=== PATIENT | female | born 1965 | race African-American/Black ===

== ENCOUNTER 2016-08-22 11:46 | Day surgery (SDC) | payer OTHER ==
[2016-08-22] VITALS (9 sets, daily range): BP systolic 86–116; BP diastolic 41–65; PULSE 79–114; RESP 12–75; Ht 142.2 cm; Wt 64.0 kg
[~2016-08-22] VITALS: Ht 142.2 cm; Wt 64.0 kg
[~2016-08-22 11:46] MED LIST: DEXAMETHASONE 4 MG/ML 1 ML INJ ONE; ONDANSETRON 4 MG INJ ONE
[2016-08-22] MEDS ORDERED: SOD CHLORIDE 0.9% 1,000 ML IV ONE (12:30)
[2016-08-22 13:49] LABS: ADD SCAN DIFF NO
[2016-08-22 13:52] LABS: BASOPHILS % 0.3 % (0.0-2.0); EOSINOPHILS % 0.7 % (0.0-7.0); HEMOGLOBIN 12.7 g/dl (12.0-16.0); LYMPHOCYTES # 2.1 10^3/ul (0.8-2.9); LYMPHOCYTES % 36.7 % (15.0-51.0); MEAN CORPUSCULAR HEMOGLOBIN 29.3 pg (29.0-33.0); MEAN CORPUSCULAR HGB CONC 33.4 g/dl (32.0-37.0); MEAN CORPUSCULAR VOLUME 87.8 fl (82.0-101.0); MEAN PLATELET VOLUME 12.9 fl (7.4-10.4); MONOCYTE # 0.6 10^3/ul (0.3-0.9); MONOCYTES % 9.5 % (0.0-11.0); NEUTROPHIL # 3.1 10^3/ul (1.6-7.5); NEUTROPHILS % 52.6 % (39.0-77.0); PLATELET COUNT 213 10^3/UL (140-415); RED BLOOD COUNT 4.33 10^6/ul (4.20-5.40); RED CELL DISTRIBUTION WIDTH 13.2 % (11.5-14.5); WHITE BLOOD COUNT 5.8 10^3/ul (4.8-10.8)
[2016-08-22 14:07] LABS: INR 0.94; PROTIME 12.6 Sec (12.2-14.2)
[2016-08-22 14:08] LABS: PARTIAL THROMBOPLASTIN TIME 30.2 Sec (25.0-35.0)
[2016-08-22 14:10] LABS: ALBUMIN 5.2 g/dl (3.3-4.9); ALBUMIN/GLOBULIN RATIO 1.44; BILIRUBIN,INDIRECT 0.6 mg/dl (0-1.1); BILIRUBIN,TOTAL 0.6 mg/dl (0.2-1.3); TOTAL PROTEIN 8.8 g/dl (6.1-8.1)
[2016-08-22 14:14] LABS: CALCIUM 9.7 mg/dl (8.4-10.2); CREATININE 0.85 mg/dl (0.44-1.00); POTASSIUM 4.1 mmol/L (3.5-5.1)
[2016-08-22] MEDS ORDERED: PROPOFOL 60 ML ONE (15:01)
[2016-08-22] MEDS ORDERED: LIDOCAINE 2% (SDV) 5 ML INJ ONE (15:02)
[2016-08-22] MEDS ORDERED: FENTAnyl 50 MCG/ML VIAL ONE (15:05)
[2016-08-22] MEDS: BUPIVACAINE 0.25%/EPI (SDV) 30 ML INJ ONE ×2 (15:31→15:45)
--- NOTE | 2016-08-22 15:59 | OPR ---
Date/Time of Note Date/Time of Note DATE: 08/22/16 TIME: 15:53 Operative Report Procedure Date: Aug 22, 2016 Preoperative Diagnosis Soft tissue mass of left shoulder/upper back Postoperative Diagnosis Soft tissue mass of left shoulder/upper back, subfascial, 4 cm Operation Performed Excision of soft tissue mass left shoulder/upper back, subfascial, 4 cm Surgeon: MYKEL WATTS MD Anesthesia: general Anesthesiologist: NOMI MAYS Estimated Blood Loss: minimal Specimens Soft tissue mass left shoulder/upper back Complications: None Pt Condition Post Procedure: stable Disposition: PACU Indications The patient is a 51-year-old female who presented to the office complaining of a mass of the left shoulder/upper back area. This had been present for 1 year. It had been growing and causing increasing pain and discomfort. Patient was scheduled for elective excision of the mass for symptom relief and definitive pathological diagnosis. All risks and benefits of the procedure including, but not limited to: Wound infection, excessive bleeding, postoperative seroma/ hematoma formation, mass recurrence, etc. were all explained to the patient in full detail. She fully understood and wished to proceed with the procedure. Informed consent was obtained. Operative\Procedure Findings Mass consistent with lipoma Procedure Description The patient was brought to the operating room and placed supine on the operating table. Bilateral sequential compression devices were placed in both lower extremities. A dose of broad-spectrum perioperative intravenous antibiotics was given. After the induction of smooth general anesthesia the patient was positioned in the right lateral decubitus position with the left side up. The mass had been preoperatively marked and confirmed with the patient in the holding area. The left shoulder and upper back were then prepped and draped in standard surgical fashion. After performance of the surgical timeout 0.25% Marcaine with epinephrine was injected in a radial fashion around the area of the mass creating a field block. An incision was then made over the mass using a 15 blade scalpel. Incision was carried down through the skin and subcutaneous tissues down to the level of the fascia which was incised. A subfascial lipomatous mass was identified. It was dissected free of surrounding tissues and transected at its base and passed off the field as specimen. Hemostasis was then inspected for and noted to be total. The wound cavity was irrigated with warm normal saline and the irrigant returned clear. The wound was then closed in layers using a running 3-0 Vicryl suture for the fascial layer. Interrupted 3-0 Vicryl sutures were used to reapproximate the dermal layer. The skin was then reapproximated using 4-0 Monocryl suture in a running subcuticular fashion. Further local anesthesia was applied around the incision site. Incision was cleaned and Dermabond was applied to the skin of the incision. The patient was then awoken from anesthesia and transferred to the recovery room in stable condition. All counts were correct at the end at the end of the case 2. MYKEL WATTS MD Aug 22, 2016 15:59
[2016-08-22] MEDS ORDERED: MEPERIDINE 25 MG INJ IV PRN (16:00)
[2016-08-22] MEDS ORDERED: OXYCODONE/ACETAMINOPHEN (5/325) TAB PO PRN ×2 (16:00)
[2016-08-22] MEDS ORDERED: DIPHENHYDRAMINE 50 MG INJ IV PRN (16:00)
[2016-08-22] MEDS ORDERED: hydrALAzine 20 MG INJ IV PRN (16:00)
[2016-08-22] MEDS ORDERED: ONDANSETRON 4 MG INJ IV PRN ×2 (16:00)
[2016-08-22] MEDS ORDERED: LABETALOL HCL 20MG INJ IV PRN (16:00)
[2016-08-22] MEDS ORDERED: FENTAnyl 50 MCG/ML VIAL IV PRN ×3 (16:00)
== END 2016-08-22 18:26 | disposition home or self-care (01) ==
LOC: SDS 11:46
PROVIDERS: ATTEND Surgery
DX: D17.22 Benign lipomatous neoplasm of skin and subcutaneous tissue of left arm (principal); J45.909 Unspecified asthma, uncomplicated
CPT/HCPCS: 11406; 12031; 80053; 85025; 85610; 85730; 88307; J1100; J2405; J3010; Z7512; Z7610

== ENCOUNTER 2018-09-03 07:37 | Day surgery (SDC) | payer OTHER ==
[~2018-09-03] VITALS: Ht 142.2 cm; Wt 73.9 kg
[~2018-09-03 07:37] MED LIST changes: +ALBU18HF INHALATION; -DEXAMETHASONE 4 MG/ML 1 ML INJ ONE; +FLUT1BLS INHALATION; -ONDANSETRON 4 MG INJ ONE
[2018-09-03 08:25] VITALS: Ht 142.2 cm; Wt 73.9 kg
--- NOTE | 2018-09-03 09:14 | PREAC ---
Date/Time of Note Date/Time of Note DATE: 09/03/18 TIME: 09:12 Anesthesia Eval and Record Evaluation Time Pre-Procedure Interview DATE: 09/03/18 TIME: 09:12 Age 53 Sex female NPO: 8 hrs Preoperative diagnosis ABDOMINAL PAIN, POSITIVE OCCULT BLOOD, HEART BURN, CHANGE IN BOWEL HABITS Planned procedure EGD, COLONOSCOPY WITH BIOPSIES Past Medical History Past Medical History: Includes Pulm: Asthma Surgery & Anesthesia Issues No known issue Meds Anticoagulation: No Beta Nadia within 24 hr: No Reason Beta Nadia not given: Pt. not on B-Nadia Reported Medications Albuterol Sulfate* (Ventolin HFA*) 18 Gm Hfa.aer.ad, 2 PUFF INHALATION Q4H, #1 INHALER 04/05/18 Fluticasone/Vilanterol (Breo Ellipta 200-25 Mcg INH) 1 Each Blst.w.dev, 1 PUFF INHALATION DAILY, #1 INHALER 04/05/18 Meds reviewed: Yes Allergies Coded Allergies: Penicillins (Verified Allergy, Intermediate, SOB, 09/03/18) acetaminophen (Verified Allergy, Intermediate, SOB, 09/03/18) aspirin (Verified Allergy, Intermediate, SOB, 09/03/18) hydrocodone (Verified Allergy, Intermediate, SOB, 09/03/18) Allergies Reviewed: Yes Labs/Studies Labs Reviewed: Reviewed by anesthesiologist test: N/A Pre-procedure Exam Airway: Adequate mouth opening, Adequate thyromental dist Mallampati: Mallampati II Teeth: Normal Lung: Normal Heart: Normal ASA Physical Status ASA physical status: 2 Emergency: None Planned Anesthetic General/MAC: MAC Planned Pain Management Parenteral pain med Pre-operative Attestations Prior to commencing anesthesia and surgery, the patient was re-evaluated, there was verification of: *The patient's identity *The results of appropriate recent lab work and preoperative vital signs *The above evaluation not changing prior to induction *Anesthetic plan, risk benefits, alternative and complications discussed with patient/family; questions answered; patient/family understands, accepts and wishes to proceed. Jose Guadalupe Millan M.D. Sep 03, 2018 09:13
[2018-09-03] MEDS ORDERED: PROPOFOL 40 ML ONE (09:15)
[2018-09-03] MEDS ORDERED: FENTAnyl 50 MCG/ML VIAL ONE (09:15)
[2018-09-03] MEDS ORDERED: LIDOCAINE 100 MG SYRINGE ONE (09:15)
[2018-09-03 09:18] VITALS: BP 136/79; PULSE 117; RESP 18
--- NOTE | 2018-09-03 09:40 | PAC ---
Date/Time of Note Date/Time of Note DATE: 09/03/18 TIME: 09:39 Post-Anesthesia Notes Post-Anesthesia Note Last documented vital signs HR 101 RR 14 BP 117/75 T 98.7 Activity: WNL Respiratory function: WNL Cardiovascular function: WNL Mental status: Baseline Pain reasonably controlled: Yes Hydration appropriate: Yes Nausea/Vomiting absent: Yes Jose Guadalupe Millan M.D. Sep 03, 2018 09:40
[2018-09-03 10:07] VITALS: BP 125/70; RESP 16
== END 2018-09-03 10:29 | disposition home or self-care (01) ==
LOC: GIL 07:37
PROVIDERS: ATTEND Internal Medicine Gastroenterology
DX: K92.1 Melena (principal); K64.8 Other hemorrhoids; K21.9 Gastro-esophageal reflux disease without esophagitis
CPT/HCPCS: 43239; 45378; 88305; 88312; J2001; J3010; Z7610